=== PATIENT | female | born 1980 | race Caucasian/White ===

== ENCOUNTER 2017-12-06 13:17 | Emergency (ER) | payer OTHER ==
[2017-12-06 13:25] VITALS: BP 123/88; PULSE 125; TEMP 98.8; BMI 22.8
--- NOTE | 2017-12-06 13:54 | PDOC ---
History of Present Illness - General Chief Complaint: Sore Throat Stated Complaint: THROAT PAIN History Source: Patient Exam Limitations: No Limitations - History of Present Illness Initial Comments: 12/06/17 14:15 HPI: This 37-year-old female presents to the emergency room with a complaint of fever. She states that she is not feeling well. She states she is 9 weeks . After being told she was she was treated with penicillin injection for a treatment of syphilis. She is now starting to have some sore throat, fever, chills, general body aches for the past 3 days. She feels nauseous but is not having any vomiting. Chief Compliant: General body aches PMH: 9 weeks FH: Pt has not recently traveled outside the country in the last 30 days. Pt has not been in contact with people who have traveled out of the country, in contact with people who have been ill with fever, n, v, d. SH: smoking use: NONE illicit drug use: NONE alcohol use: NONE employment/educational status: sexual history: PSH: Home med use noted on JAN Allergies: NKA Immunizations: Did not receive the flu vaccine PCP: Ugo Gimenez. Past History - Past Medical History Allergies/Adverse Reactions: Allergies Allergy/AdvReac Type Severity Reaction Status Date / Time No Known Allergies Allergy Verified 12/06/17 13:24 Home Medications: Ambulatory Orders NK [No Known Home Medication] 12/06/17 COPD: No Diabetes: No - Suicide/Smoking/Psychosocial Hx Smoking History: Never smoked Hx Alcohol Use: No Review of Systems - Review of Systems Able to Perform ROS?: Yes Comments:: 12/06/17 14:18 General statement: General body aches and low-grade Hematology: neg history of bleeding/blood thinners Skin: Neg for lesions, rash, bruising. HEENT: Neg symptoms Respiratory: Neg SOB or difficulty in breathing with nasal congestion and cough Cardiac: Neg chest pain GI: Neg pain, n/v : Neg problems on voiding MS: Neg for joint pain/stiffness, no edema Neuro: Neg for LOC, weakness, Endocrine: Neg for excess thirst/hunger, cold/heat intolerance, excess sweating Allergies: Neg for allergies *Physical Exam - Vital Signs Last Vital Signs Temp Pulse Resp BP Pulse Ox 98.8 F 125 H 20 123/88 100 12/06/17 13:21 12/06/17 13:21 12/06/17 13:21 12/06/17 13:21 12/06/17 13:21 - Physical Exam Comments: 12/06/17 14:18 General Appearance: This ill appearing female V/S: hemodynamically stable, afebrile at ER Skin: WNL of pt's skin color, no signs of pallor, mottling, cyanosis Head:symmetrical Eyes: EOM's intact, PERRLA Ears: denies pain Nose: patent with swelling turbinates Throat: lips, teeth, gums, tongue, buccal mucos pink and moist, erythema to pharynx Lungs: Chest symmetry equal. Cap refill <3 seconds. Lung sounds clear Cardiac: PMI at R 4MCL space, pos S1 and S2, regular rate. Abdomen: Soft, round, nontender : Not observed Muscularskeletal: Gait steady, ambulated in to ER, no edema +PMS Neuro: AAOx3, cognitively intact, speech clear and appropriate. Medical Decision Making - Medical Decision Making 12/06/17 14:20 Pt seen and examined. Swabbed for influenza. 12/06/17 14:34 Patient is noted to be positive for influenza B. Encouraging to have fluids, tylenol and rest. She is 9 weeks *DC/Admit/Observation/Transfer Diagnosis at time of Disposition: Influenza B - Discharge Dispostion Disposition: HOME Condition at time of disposition: Stable Admit: No - Referrals Referrals: Ej Trejo PA [Primary Care Provider] - - Patient Instructions Printed Discharge Instructions: DI for Influenza -- Adult Additional Instructions: Discharge instructions 1. Please follow up with your primary physician within the next few days and explain that you have been seen here in the Emergency Room. 2. If you experience any worsening of symptoms, such as nausea, vomiting, dehydration please return to the ER 3. Rest, take Tylenol for fever and body aches 4. Drink plenty of fluid - Post Discharge Activity
== END 2017-12-06 14:48 | disposition home or self-care (01) ==
LOC: JERFT 13:17
DX: O26.891 Other specified pregnancy related conditions, first trimester (principal); O98.511 Other viral diseases complicating pregnancy, first trimester; J10.1 Influenza due to other identified influenza virus with other respiratory manifestations; Z3A.09 9 weeks gestation of pregnancy
CPT/HCPCS: 87804; 99281-25

== ENCOUNTER 2017-12-15 11:21 | Emergency (ER) | payer OTHER ==
[2017-12-15 11:35] VITALS: TEMP 98.4; BMI 23.0
[2017-12-15] MEDS ORDERED: ONDANSETRON 4 MG/2 ML VIAL IVPUSH ONE (13:09)
--- NOTE | 2017-12-15 13:09 | PDOC ---
History of Present Illness - General History Source: Patient Exam Limitations: No Limitations - History of Present Illness Initial Comments: 12/15/17 14:19 The patient is a 37 year old female (10 weeks ), with no significant past medical history who presents to the emergency department with nausea, vomiting, and generalized weakness. Patient endorses generalized abdominal pain. Patient was sent in by [employer] Supervisor for further evaluation. Patient denies chest pain, headache or dizziness. Patient denies fever, chills, diarrhea or constipation. Patient denies dysuria, frequency, urgency or hematuria. Patient denies sick contacts or recent travel. Allergies: NKA Past surgical history: C section Social history: None PCP: Dr. Trejo <Safia Bravo - Last Filed: 12/15/17 14:19> <Tyra Jones - Last Filed: 12/15/17 16:45> - General Chief Complaint: Nausea/Vomiting Stated Complaint: PREG DEHYDRATED (PCP SENT) Time Seen by Provider: 12/15/17 11:57 Past History <Safia Bravo - Last Filed: 12/15/17 14:19> - Past Medical History COPD: No Diabetes: No - Suicide/Smoking/Psychosocial Hx Smoking History: Unknown if ever smoked Information on smoking cessation initiated: No Hx Alcohol Use: No Drug/Substance Use Hx: No Substance Use Type: None <Tyra Jones - Last Filed: 12/15/17 16:45> - Past Medical History Allergies/Adverse Reactions: Allergies Allergy/AdvReac Type Severity Reaction Status Date / Time No Known Allergies Allergy Verified 12/15/17 11:31 Home Medications: Ambulatory Orders Ondansetron [Zofran Odt -] 4 mg SL TID PRN #21 od.tablet 12/15/17 Review of Systems - Review of Systems Able to Perform ROS?: Yes Comments:: 12/15/17 14:19 GENERAL/CONSTITUTIONAL: No fever or chills. No weakness. HEAD, EYES, EARS, NOSE AND THROAT: No change in vision. No ear pain or discharge. No sore throat. GASTROINTESTINAL: + nausea, vomiting, abdominal pain. No diarrhea or constipation. GENITOURINARY: No dysuria, frequency, or change in urination. CARDIOVASCULAR: No chest pain or shortness of breath. RESPIRATORY: No cough, wheezing, or hemoptysis. MUSCULOSKELETAL: No joint or muscle swelling or pain. No neck or back pain. SKIN: No rash NEUROLOGIC: No headache, vertigo, loss of consciousness, or change in strength/ sensation. ENDOCRINE: No increased thirst. No abnormal weight change. HEMATOLOGIC/LYMPHATIC: No anemia, easy bleeding, or history of blood clots. ALLERGIC/IMMUNOLOGIC: No hives or skin allergy. <Safia Bravo - Last Filed: 12/15/17 14:19> *Physical Exam - Vital Signs Last Vital Signs Temp Pulse Resp BP Pulse Ox 98.4 F 90 18 106/71 100 12/15/17 11:33 12/15/17 11:33 12/15/17 11:33 12/15/17 11:33 12/15/17 11:33 <Safia Bravo - Last Filed: 12/15/17 14:19> - Vital Signs Last Vital Signs Temp Pulse Resp BP Pulse Ox 98.4 F 90 18 106/71 100 12/15/17 11:33 12/15/17 11:33 12/15/17 11:33 12/15/17 11:33 12/15/17 11:33 <Tyra Jones - Last Filed: 12/15/17 16:45> ED Treatment Course - LABORATORY CBC & Chemistry Diagram: 12/15/17 13:09 12/15/17 13:09 - ADDITIONAL ORDERS Additional order review: 12/15/17 13:09 RBC 5.02 MCV 81.7 MCHC 33.5 RDW 12.2 MPV 7.6 D Neutrophils % 69.1 Lymphocytes % 23.8 D Monocytes % 6.1 Eosinophils % 0.5 D Basophils % 0.5 - Medications Given in the ED: ED Medications Discontinued Medications Generic Name Dose Route Start Last Admin Trade Name Freq PRN Reason Stop Dose Admin Lactated Ringer's 1,000 ml 12/15/17 13:10 12/15/17 13:48 Lactated Ringers Solution IV 12/15/17 13:11 1,000 ml ONCE ONE Administration Ondansetron HCl 4 mg 12/15/17 13:09 12/15/17 13:48 Zofran Injection IVPUSH 12/15/17 13:10 4 mg ONCE ONE Administration <Safia Bravo - Last Filed: 12/15/17 14:19> - LABORATORY CBC & Chemistry Diagram: 12/15/17 13:09 12/15/17 13:09 <Tyra Jones - Last Filed: 12/15/17 16:45> Medical Decision Making - Medical Decision Making 12/15/17 16:44 Sono results d/w patient. Offered PO challenge. Will DC home when IV fluids are complete. <Tyra Jones - Last Filed: 12/15/17 16:45> *DC/Admit/Observation/Transfer - Attestations Scribe Attestion: 12/15/17 14:20 Documentation prepared by Safia Bravo, acting as medical oncologist for Tyra Jones MD <Safia Bravo - Last Filed: 12/15/17 14:19> - Discharge Dispostion Admit: No <Tyra Jones - Last Filed: 12/15/17 16:45> Diagnosis at time of Disposition: Hyperemesis - Discharge Dispostion Disposition: HOME Condition at time of disposition: Stable - Prescriptions Prescriptions: Ondansetron [Zofran Odt -] 4 mg SL TID PRN #21 od.tablet PRN Reason: Nausea And/Or Vomiting - Referrals Referrals: Ej Trejo PA [Primary Care Provider] - - Patient Instructions Printed Discharge Instructions: DI for Hyperemesis Gravidarum Print Language: BOTSWANAN - Post Discharge Activity
[2017-12-15] MEDS ORDERED: LACTATED RINGERS SOLUTION 1000 ML INFUS.BAG IV ONE (13:10)
[2017-12-15] MEDS ORDERED: ONDANSETRON 4 MG/2 ML VIAL ONE (13:30)
[2017-12-15 13:50] LABS: BASO % 0.5 % (0-2.0); EOS % 0.5 % (0-4.5); HEMOGLOBIN 13.7 GM/dL (10.7-15.3); LYMPH % 23.8 % (8-40); MCH 27.3 pg (25.7-33.7); MCHC 33.5 g/dl (32.0-36.0); MEAN CELL VOLUME 81.7 fl (80-96); MEAN PLT VOLUME 7.6 fl (7.5-11.1); MONO % 6.1 % (3.8-10.2); NEUT % 69.1 % (42.8-82.8); PLATELET COUNT 354 K/MM3 (134-434); RBC 5.02 M/mm3 (3.60-5.2); RDW 12.2 % (11.6-15.6); WHITE BLOOD COUNT 8.4 K/mm3 (4.0-10.0)
[2017-12-15 14:22] LABS: ALBUMIN 3.5 g/dl (3.4-5.0); ANION GAP 9 (8-16); BILIRUBIN,TOTAL 0.9 mg/dL (0.2-1.0); BLOOD UREA NITROGEN 7 mg/dL (7-18); CALCIUM 9.5 mg/dL (8.5-10.1); CHLORIDE 105 mmol/L (98-107); CO2 24 mmol/L (21-32); CREATININE 0.5 mg/dL (0.55-1.02); GLUCOSE,RANDOM 69 mg/dL (74-106); POTASSIUM 4.3 mmol/L (3.5-5.1); SGOT/AST 38 U/L (15-37); SGPT/ALT 64 U/L (12-78); SODIUM 138 mmol/L (136-145); TOT PROT 7.5 g/dl (6.4-8.2)
[2017-12-15 14:27] LABS: LIPASE 288 U/L (73-393)
[2017-12-15 14:37] LABS: ALK PHOS 74 U/L (45-117)
[2017-12-15] MEDS ORDERED: DEXTROSE 5%-NORMAL SALINE 1,000 ML IV SCH (14:45)
[2017-12-15 16:01] LABS: URINE APPEARANCE CLEAR; URINE BILIRUBIN NEGATIVE (NEGATIVE); URINE BLOOD NEGATIVE (NEGATIVE); URINE COLOR AMBER; URINE GLUCOSE (UA) NEGATIVE (NEGATIVE); URINE KETONE 2+ (NEGATIVE); URINE LEUK ESTERASE TRACE (NEGATIVE); URINE NITRITE NEGATIVE (NEGATIVE); URINE PROTEIN NEGATIVE (NEGATIVE); URINE UROBILINOGEN 4.0 E.U/dl mg/dL (0.2-1.0)
[2017-12-15 17:33] VITALS: BP 122/68; PULSE 76
== END 2017-12-15 17:33 | disposition home or self-care (01) ==
LOC: JER 11:21
DX: O26.891 Other specified pregnancy related conditions, first trimester (principal); O21.0 Mild hyperemesis gravidarum; Z3A.10 10 weeks gestation of pregnancy
CPT/HCPCS: 36415; 76801-TC; 80053; 81003; 81015; 83690; 84702; 85025; 99285-25

== ENCOUNTER 2018-06-26 15:00 | Inpatient (IN) | payer OTHER ==
[2018-06-29] MEDS ORDERED: ELECTROLYTE-148 SOLN 500 ML IV ONE (14:00)
[2018-06-29 14:40] VITALS: BMI 27.7
[2018-06-29] MEDS: ELECTROLYTE-148 SOLN 1,000 ML IV SCH (15:00)
[2018-06-29] MEDS ORDERED: CITRIC ACID/SODIUM CITRATE 30 ML UNIT-DOSE CUP PO ONE (15:02)
[2018-06-29] MEDS ORDERED: OXYTOCIN 20 UNITS in 0.9% NS 40 UNIT/2,000 ML INFUS.BAG IV ONE (16:28)
[2018-06-29] MEDS ORDERED: morphine SULFATE/Preservative Free 0.5 MG/ML (1cc Syringe) ONE (16:28)
--- NOTE | 2018-06-29 16:28 | HP ---
Past Medical History - Primary Care Physician PCP:: Humble Cheung - Admission Chief Complaint: 39 weeks, previous c/s, request of repeat c/s History of Present Illness: 38 yo f g 3 p2002 39.2 weeks, with previous c/s , request of repeat c/s , discussed and encourged, risks of repeat c/s discussed History Source: Patient Limitations to Obtaining History: Language Barrier - Past Medical History ...: 3 ...Para: 2 ...Term: 2 ...: 0 ...Spon : 0 ...Induced : 0 ...Multiple Gestation: 0 ...LMP: 09/27/17 ... Weeks Gestation by Dates: 39.2 ...EDC by Dates: 07/04/18 ...EDC by Sono: 07/04/18 Additional OB History: AMA, negative sequential 1 and 2 Infectious Disease: Yes: STD's (txed for syphillis, hsv) - Past Surgical History Hx Myomectomy: No Hx Transabdominal Cerclage: No - Smoking History Smoking history: Never smoked Have you smoked in the past 12 months: No - Alcohol/Substance Use Hx Alcohol Use: No History of Substance Use: reports: None - Social History Usual Living Arrangement: Yes: With Spouse History of Recent Travel: No Home Medications - Allergies Allergies/Adverse Reactions: Allergies Allergy/AdvReac Type Severity Reaction Status Date / Time No Known Allergies Allergy Verified 06/29/18 14:43 - Home Medications Home Medications: Ambulatory Orders Acyclovir [Zovirax -] 800 mg PO DAILY 06/29/18 Ferrous Sulfate [Feosol] 1 tab PO DAILY 06/29/18 Vitamins (Sjr) - 1 tab PO DAILY 06/29/18 Family Disease History - Family Disease History Family Disease History: Other: Father (htn, cva) Review of Systems - Review of Systems Constitutional: reports: No Symptoms Eyes: reports: No Symptoms HENT: reports: No Symptoms Neck: reports: No Symptoms Cardiovascular: reports: No Symptoms Respiratory: reports: No Symptoms Genitourinary: reports: No Symptoms Breasts: reports: No Symptoms Reported Musculoskeletal: reports: No Symptoms Integumentary: reports: No Symptoms Neurological: reports: No Symptoms Endocrine: reports: No Symptoms Hematology/Lymphatic: reports: No Symptoms Psychiatric: reports: No Symptoms Physical Exam - Maternity Vital Signs: Vital Signs Temperature 98.1 F 06/29/18 13:50 Pulse Rate 64 06/29/18 13:50 Respiratory Rate 18 06/29/18 13:50 Blood Pressure 127/72 06/29/18 13:50 O2 Sat by Pulse Oximetry (%) Constitutional: Yes: Well Nourished, No Distress, Calm Eyes: Yes: WNL, Conjunctiva Clear, EOM Intact HENT: Yes: WNL, Atraumatic, Normocephalic Neck: Yes: WNL, Supple, Trachea Midline Cardiovascular: Yes: WNL, Regular Rate and Rhythm Breast(s): Yes: WNL - Abdominal Exam/OB Fundal Height: 40 Number of Fetuses: Single Presentation: Vertex Contractions: Yes Regularity: Irregular Intensity: Unaware Monitor Mode: External Heart Rate Location: [facility] Category: I Accelerations: Uniform Decelerations: None - Vaginal Exam/OB Vaginal Bleediing: No Speculum Exam: No Dilatation (cm): closed Effacement (%): 0 Amniotic Membrane Status: Intact Presentation: Vertex/Position Station: -3 - Physical Exam Musculoskeletal: Yes: WNL Extremities: Yes: WNL Edema: Yes Edema: LLE: Trace, RLE: Trace Deep Tendon Reflex Grade: Normal +2 ...Motor Strength: WNL Psychiatric: Yes: WNL Hemorrhage Risk Assessment - Risk Factors Medium Risk Factors: Yes: Prior , uterine surgery,or multiple laparotomies Risk Score: 1 Risk Level: Medium Risk Problem List - Problems (1) with 39 completed weeks gestation Code(s): Z3A.39 - 39 WEEKS GESTATION OF (2) Previous section complicating Code(s): O34.219 - MATERNAL CARE FOR UNSP TYPE SCAR FROM PREVIOUS DEL (3) Advanced maternal age (AMA) in Code(s): QRN6992 - (4) Syphilis affecting Code(s): O98.119 - SYPHILIS COMPLICATING , UNSPECIFIED TRIMESTER Qualifiers: Trimester: third trimester Qualified Code(s): O98.113 - Syphilis complicating , third trimester Assessment/Plan requesting repeat c/s, rba discussed
[2018-06-29] MEDS ORDERED: ACETAMINOPHEN 325 MG TABLET (FP) PO PRN (16:48)
[2018-06-29] MEDS ORDERED: ONDANSETRON 4 MG/2 ML VIAL IVPUSH PRN (16:48)
[2018-06-29] MEDS ORDERED: ceFAZolin SODIUM 1 GM VIAL ONE (16:50)
[2018-06-29] MEDS ORDERED: BENZOCAINE 20% 57 GM BOTTLE TP PRN (17:34)
[2018-06-29] MEDS ORDERED: diphenhydrAMINE HCL 25 MG CAPSULE (FP) PO PRN (17:34)
[2018-06-29] MEDS ORDERED: METHYLERGONOVINE MALEATE 0.2 MG/1 ML AMP IM PRN (17:34)
[2018-06-29] MEDS ORDERED: IBUPROFEN 800 MG/8 ML IJ IVPB PRN (17:34)
[2018-06-29] MEDS ORDERED: IBUPROFEN 600 MG TABLET (FP) PO PRN (17:34)
[2018-06-29] MEDS ORDERED: BENZOCAINE 28 GM HEMORRHOIDAL OINTMENT PR PRN (17:34)
[2018-06-29] MEDS ORDERED: WITCH HAZEL 50% (TUCKS) 40 PAD/JAR PAD TP PRN (17:34)
--- NOTE | 2018-06-29 17:38 | SURG ---
Surgery Rn Diabetes Note Rn Diabetes: Jovani Vega PA-C Date of Service: 06/29/18 Diagnosis: Repeat Procedure: I was present for the entirety of the operative procedure. For further detail, please refer to operative report.
[2018-06-29] MEDS ORDERED: OXYTOCIN 20 UNITS in 0.9% NS 20 UNIT/1,000 ML INFUS.BAG IV SCH (17:45)
[2018-06-29] MEDS ORDERED: CEFAZOLIN 1 GM in DEXTROSE 5%-WATER - 50 ML IVPB SCH (18:00)
[2018-06-30] MEDS ORDERED: ceFAZolin SODIUM 1 GM VIAL ONE ×2 (00:36→08:40)
[2018-06-30] MEDS ORDERED: DEXTROSE 5%-WATER - 50 ML IVPB ONE ×2 (00:36→08:40)
[2018-06-30] MEDS: CEFAZOLIN 1 GM in DEXTROSE 5%-WATER - 50 ML IVPB SCH ×2 (00:42→08:45)
[2018-06-30 08:39] LABS: BASO % 0.4 % (0-2.0); EOS % 0.1 % (0-4.5); HEMATOCRIT 34.6 % (32.4-45.2); HEMOGLOBIN 11.6 GM/dL (10.7-15.3); LYMPH % 11.9 % (8-40); MCH 28.7 pg (25.7-33.7); MCHC 33.6 g/dl (32.0-36.0); MEAN CELL VOLUME 85.3 fl (80-96); MEAN PLT VOLUME 8.5 fl (7.5-11.1); MONO % 4.8 % (3.8-10.2); NEUT % 82.8 % (42.8-82.8); PLATELET COUNT 207 K/MM3 (134-434); RBC 4.06 M/mm3 (3.60-5.2); RDW 14.2 % (11.6-15.6); WHITE BLOOD COUNT 11.1 K/mm3 (4.0-10.0)
--- NOTE | 2018-06-30 09:13 | PN ---
Post Progress Note Type of Delivery: Repeat C/S Vital Signs: Vital Signs Temperature 98.1 F 06/30/18 05:32 Pulse Rate 57 L 06/30/18 05:32 Respiratory Rate 20 06/30/18 06:00 Blood Pressure 90/48 06/30/18 05:32 O2 Sat by Pulse Oximetry (%) 100 06/29/18 18:45 - Labs Labs: CBC WBC 11.1 K/mm3 (4.0-10.0) H 06/30/18 07:10 RBC 4.06 M/mm3 (3.60-5.2) 06/30/18 07:10 Hgb 11.6 GM/dL (10.7-15.3) 06/30/18 07:10 Hct 34.6 % (32.4-45.2) 06/30/18 07:10 MCV 85.3 fl (80-96) 06/30/18 07:10 MCH 28.7 pg (25.7-33.7) 06/30/18 07:10 MCHC 33.6 g/dl (32.0-36.0) 06/30/18 07:10 RDW 14.2 % (11.6-15.6) 06/30/18 07:10 Plt Count 207 K/MM3 (134-434) 06/30/18 07:10 MPV 8.5 fl (7.5-11.1) 06/30/18 07:10 Absolute Neuts (auto) 9.2 K/mm3 (1.5-8.0) H 06/30/18 07:10 Neutrophils % 82.8 % (42.8-82.8) 06/30/18 07:10 Lymphocytes % 11.9 % (8-40) D 06/30/18 07:10 Monocytes % 4.8 % (3.8-10.2) 06/30/18 07:10 Eosinophils % 0.1 % (0-4.5) 06/30/18 07:10 Basophils % 0.4 % (0-2.0) 06/30/18 07:10 Nucleated RBC % 0 % (0-0) 06/30/18 07:10
[2018-06-30] MEDS: oxyCODONE HCL 5 MG TABLET PO PRN ×3 (10:17→21:12)
[2018-06-30] MEDS: ENOXAPARIN NA (PORCINE) 40 MG/0.4 ML DISP.SYRIN SQ SCH (10:17)
[2018-06-30] MEDS: ACETAMINOPHEN 325 MG TABLET (FP) PO PRN ×3 (10:18→21:14)
[2018-06-30] MEDS: SIMETHICONE 80 MG TAB.CHEW (FP) PO PRN ×3 (10:19→21:12)
--- NOTE | 2018-06-30 10:21 | OP ---
DATE OF OPERATION: 06/29/2018 PREOPERATIVE DIAGNOSIS: , 39 weeks, previous section, request of repeat section. POSTOPERATIVE DIAGNOSIS: , 39 weeks, previous section, request of repeat section. PROCEDURE: Repeat low segment transverse section. SURGEON: Humble Cheung MD ENVIRONMENTAL DESIGNER: YUE Rios ANESTHESIA: Spinal. ANESTHESIOLOGIST: Kaleb Rankin MD ESTIMATED BLOOD LOSS: 500 mL. OPERATION: The patient was taken to the operating room, had adequate spinal anesthesia. Abdomen and perineum were prepped and draped. Pfannenstiel abdominal skin incision was made. Abdominal wall was cut layer by layer until the peritoneum was exposed and incised. Upon entering the abdominal cavity, lower uterine segment was identified, and uterovesical fold of peritoneum was established, bladder was pushed down. A low transverse uterine incision was made. Incision extended laterally. Amniotic sac was entered. Clear fluid, head delivered from right occiput transverse position. Nasal sinuses were suctioned. Cord around the neck x1 reduced. Then, live baby was delivered without any difficulty. Placenta was delivered manually. Uterine cavity was cleaned of all remaining tissue. Uterine incision was closed in 2 layers, 1st layer with 0 Biosyn continuous suture, the 2nd layer with 0 Biosyn imbricating the 1st layer. Bladder flap was closed with 0 Biosyn continuous suture. Both tubes and ovaries were checked, were normal. No active bleeding was seen. All the lap, sponge, and instrument counts were correct. Then, peritoneum was closed with 0 Biosyn continuous suture, muscles were brought together with interrupted sutures of 0 Biosyn, fascia was closed with 0 Biosyn continuous suture, subcutaneous fat with interrupted suture of 0 Biosyn, and the skin was closed with 3-0 Vicryl subcuticular continuous suture. Patient tolerated the procedure well, left the OR in good condition. Audrey [id number]
--- NOTE | 2018-06-30 10:37 | PN ---
Progress Note (short form) - Note Progress Note: Anesthesia postop note 38 y/o F s/p spinal anesthesia for section, duramorph for postop pain management. POD#1, vss, aooxe, sensory motor intact distally, pain well controlled. No anesthesia complications.
[2018-06-30] MEDS ORDERED: BISACODYL 10 MG SUPP.RECT RC PRN (17:34)
[2018-06-30] MEDS: IBUPROFEN 600 MG TABLET (FP) PO PRN (21:13)
[2018-07-01] MEDS: ACETAMINOPHEN 325 MG TABLET (FP) PO PRN ×3 (08:07→20:42)
[2018-07-01] MEDS: oxyCODONE HCL 5 MG TABLET PO PRN ×2 (08:08→15:44)
[2018-07-01] MEDS: IBUPROFEN 600 MG TABLET (FP) PO PRN ×3 (08:09→20:43)
[2018-07-01] MEDS: SIMETHICONE 80 MG TAB.CHEW (FP) PO PRN ×3 (08:09→20:42)
--- NOTE | 2018-07-01 09:35 | PN ---
Post Progress Note - Subjective Subjective: c/o pain scale 8/10 voiding without difficulty Post Day: 2 Type of Delivery: Repeat C/S Vital Signs: Vital Signs Temperature 98 F 06/30/18 22:00 Pulse Rate 62 06/30/18 22:00 Respiratory Rate 18 06/30/18 22:00 Blood Pressure 125/72 06/30/18 22:00 O2 Sat by Pulse Oximetry (%) 100 06/29/18 18:45 Breast Exam: Yes: Soft, Other (BF ). No: Engorged Uterus: Yes: Fundus Firm, Fundus below umbilicus, Non-tender Incision: Yes: Sutures intact. No: Redness, Oozing Abdomen/GI: Yes: Abdomen soft, Passing flatus (bm done ), Tolerating PO (diet). No: Abdominal Distention, Tender Lochia: Yes: Rubra Lochia, amount: Small Extremities: Yes: Calves non-tender Perineum: Yes: Intact Activity: Ambulating - Labs Labs: CBC WBC 11.1 K/mm3 (4.0-10.0) H 06/30/18 07:10 RBC 4.06 M/mm3 (3.60-5.2) 06/30/18 07:10 Hgb 11.6 GM/dL (10.7-15.3) 06/30/18 07:10 Hct 34.6 % (32.4-45.2) 06/30/18 07:10 MCV 85.3 fl (80-96) 06/30/18 07:10 MCH 28.7 pg (25.7-33.7) 06/30/18 07:10 MCHC 33.6 g/dl (32.0-36.0) 06/30/18 07:10 RDW 14.2 % (11.6-15.6) 06/30/18 07:10 Plt Count 207 K/MM3 (134-434) 06/30/18 07:10 MPV 8.5 fl (7.5-11.1) 06/30/18 07:10 Absolute Neuts (auto) 9.2 K/mm3 (1.5-8.0) H 06/30/18 07:10 Neutrophils % 82.8 % (42.8-82.8) 06/30/18 07:10 Lymphocytes % 11.9 % (8-40) D 06/30/18 07:10 Monocytes % 4.8 % (3.8-10.2) 06/30/18 07:10 Eosinophils % 0.1 % (0-4.5) 06/30/18 07:10 Basophils % 0.4 % (0-2.0) 06/30/18 07:10 Nucleated RBC % 0 % (0-0) 06/30/18 07:10 Problem List - Problems (1) Status post section routine follow-up Code(s): Z39.2 - ENCOUNTER FOR ROUTINE FOLLOW-UP; Z98.891 - HISTORY OF UTERINE SCAR FROM PREVIOUS SURGERY Assessment/Plan stable plan ct po care
[2018-07-01] MEDS: ENOXAPARIN NA (PORCINE) 40 MG/0.4 ML DISP.SYRIN SQ SCH (10:38)
[2018-07-01] MEDS: SENNOSIDES/DOCUSATE COMBO (SENNA PLUS) TABLET (UD) PO PRN (20:42)
[2018-07-02] MEDS: DEXTROSE 5%-LACTATED RINGERS 1,000 ML IV SCH ×3 (01:11→01:13)
[2018-07-02] MEDS: ELECTROLYTE-148 SOLN 1,000 ML IV SCH ×2 (01:12→01:13)
[2018-07-02] MEDS: SIMETHICONE 80 MG TAB.CHEW (FP) PO PRN ×3 (03:59→18:31)
[2018-07-02] MEDS: ACETAMINOPHEN 325 MG TABLET (FP) PO PRN ×3 (03:59→18:32)
[2018-07-02] MEDS: IBUPROFEN 600 MG TABLET (FP) PO PRN ×2 (04:00→18:31)
[2018-07-02 08:32] LABS: BASO % 0.6 % (0-2.0); EOS % 1.6 % (0-4.5); HEMATOCRIT 33.4 % (32.4-45.2); HEMOGLOBIN 11.2 GM/dL (10.7-15.3); LYMPH % 22.1 % (8-40); MCH 28.7 pg (25.7-33.7); MCHC 33.5 g/dl (32.0-36.0); MEAN CELL VOLUME 85.6 fl (80-96); MEAN PLT VOLUME 7.6 fl (7.5-11.1); NEUT % 70.7 % (42.8-82.8); PLATELET COUNT 239 K/MM3 (134-434); RDW 14.1 % (11.6-15.6); WHITE BLOOD COUNT 7.5 K/mm3 (4.0-10.0)
--- NOTE | 2018-07-02 09:42 | PN ---
Post Progress Note - Subjective Subjective: pt feels better. pain more tolerable. scale 4-6/10 voiding without difficulty. bm done ,not satisfactory Post Day: 3 Type of Delivery: Repeat C/S Vital Signs: Vital Signs Temperature 97 F L 07/02/18 08:42 Pulse Rate 84 07/02/18 08:42 Respiratory Rate 20 07/02/18 08:42 Blood Pressure 112/64 07/02/18 08:42 O2 Sat by Pulse Oximetry (%) 100 06/29/18 18:45 Breast Exam: Yes: Soft, Other (BF.). No: Engorged Uterus: Yes: Fundus Firm, Fundus below umbilicus, Non-tender Incision: Yes: Sutures intact. No: Redness, Oozing Abdomen/GI: Yes: Abdomen soft, Tolerating PO (diet). No: Abdominal Distention Lochia: Yes: Rubra Lochia, amount: Moderate Perineum: Yes: Intact Activity: Ambulating - Labs Labs: CBC WBC 7.5 K/mm3 (4.0-10.0) 07/02/18 07:45 RBC 3.90 M/mm3 (3.60-5.2) 07/02/18 07:45 Hgb 11.2 GM/dL (10.7-15.3) 07/02/18 07:45 Hct 33.4 % (32.4-45.2) 07/02/18 07:45 MCV 85.6 fl (80-96) 07/02/18 07:45 MCH 28.7 pg (25.7-33.7) 07/02/18 07:45 MCHC 33.5 g/dl (32.0-36.0) 07/02/18 07:45 RDW 14.1 % (11.6-15.6) 07/02/18 07:45 Plt Count 239 K/MM3 (134-434) 07/02/18 07:45 MPV 7.6 fl (7.5-11.1) D 07/02/18 07:45 Absolute Neuts (auto) 5.3 K/mm3 (1.5-8.0) 07/02/18 07:45 Neutrophils % 70.7 % (42.8-82.8) 07/02/18 07:45 Lymphocytes % 22.1 % (8-40) D 07/02/18 07:45 Monocytes % 5.0 % (3.8-10.2) 07/02/18 07:45 Eosinophils % 1.6 % (0-4.5) D 07/02/18 07:45 Basophils % 0.6 % (0-2.0) 07/02/18 07:45 Nucleated RBC % 0 % (0-0) 07/02/18 07:45 Problem List - Problems (1) Status post section routine follow-up Code(s): Z39.2 - ENCOUNTER FOR ROUTINE FOLLOW-UP; Z98.891 - HISTORY OF UTERINE SCAR FROM PREVIOUS SURGERY Assessment/Plan stable. plan ct po care discharge tomorrow.
[2018-07-02] MEDS: ENOXAPARIN NA (PORCINE) 40 MG/0.4 ML DISP.SYRIN SQ SCH (10:20)
[2018-07-02] MEDS: oxyCODONE HCL 5 MG TABLET PO PRN (14:05)
[2018-07-02] MEDS ORDERED: oxyCODONE HCL 5 MG TABLET PO PRN (21:08)
[2018-07-02] MEDS: SENNOSIDES/DOCUSATE COMBO (SENNA PLUS) TABLET (UD) PO PRN (21:17)
[2018-07-03] MEDS: IBUPROFEN 600 MG TABLET (FP) PO PRN (04:52)
[2018-07-03] MEDS: SIMETHICONE 80 MG TAB.CHEW (FP) PO PRN (04:53)
[2018-07-03] MEDS: ACETAMINOPHEN 325 MG TABLET (FP) PO PRN (04:53)
--- NOTE | 2018-07-03 04:54 | DS ---
Physical Exam-ENVIRONMENTAL COMPLIANCE OFFICER Vital Signs: Vital Signs Temperature 99 F 07/02/18 21:59 Pulse Rate 66 07/02/18 21:59 Respiratory Rate 18 07/02/18 21:59 Blood Pressure 127/67 07/02/18 21:59 O2 Sat by Pulse Oximetry (%) 100 06/29/18 18:45 ....Post : Yes: Uterus firm, Uterus non-tender, Slight lochia rubra Edema: No Wound/Incision: Yes: Clean/Dry, Well Approximated, [place] Intact Labs: CBC, BMP 07/02/18 07:45 Delivery - Delivery Section: Repeat (no complication) Type of Anesthesia: Spinal Episiotomy/Laceration: None EBL (cc): 500 Delivery, Single - Stages of Labor Date of Delivery: 06/29/18 Time of Delivery: 16:54 Time Placenta Delivered: 16:55 Placenta: Yes: Spontaneous - Condition of Infant Earth Burner/Shank Skinner Present: Yes Name: Daja Wagner Gender: Male Weight: 7 lb 7 oz Position: Right, OT Total Hours ROM (Hrs/Mins): 0/2 - 1 Minute Total Score: 9 5 Minutes Total Score: 9 - [place] Feeding Plan Initial Plan: Exclusive throughout hospitalization Discharge Summary Reason For Visit: Current Active Problems Advanced maternal age (AMA) in (Acute) with 39 completed weeks gestation (Acute) Previous section complicating (Acute) Status post section routine follow-up (Acute) Syphilis affecting (Acute) Procedures: Principal: repeat lst c/s Condition: Good - Instructions Diet, Activity, Other Instructions: regular diet, no intercourse , follow up [facility] car 1 week, if fever, pain , heavy vaginal bleeding call Referrals: Humble Cheung MD [Staff Physician] - Disposition: HOME - Home Medications Comprehensive Discharge Medication List: Ambulatory Orders Acyclovir [Zovirax -] 800 mg PO DAILY 06/29/18 Ferrous Sulfate [Feosol] 1 tab PO DAILY 06/29/18 Vitamins (Sjr) - 1 tab PO DAILY 06/29/18 Ibuprofen [Motrin -] 600 mg PO QID #28 tablet 07/02/18
[2018-07-03] MEDS: ENOXAPARIN NA (PORCINE) 40 MG/0.4 ML DISP.SYRIN SQ SCH (10:11)
[2018-07-03 13:48] VITALS: BP 110/70; PULSE 64; TEMP 98.2
--- NOTE | 2018-07-07 18:01 | PATH ---
Surgical Pathology Report Patient Name: TESSIE TRINIDAD Med. Rec. #: [id number] /Age/Gender: 1980 (Age: 38) / F Account: [id number] Location: [facility] OBS/RESTAURANT RECRUITER Taken: 06/29/2018 Received: 06/30/2018 Reported: 07/07/2018 Physicians: Humble Cheung M.D. Specimen(s) Received PLACENTA Clinical History , 39.2 weeks for repeat Final Diagnosis PLACENTA: THIRD TRIMESTER PLACENTA. TRIVASCULAR CORD. MEMBRANES WITH NO DIAGNOSTIC ABNORMALITIES. Electronically Signed Carrillo Restrepo M.D. Gross Description The specimen is received fresh labeled placenta and is a 495 gram, 21.0 x 15.5 x 2.4 cm. placenta with attached membranes and umbilical cord. The attached membranes are pimentel, translucent with focal opacities and insert marginally. The umbilical cord measures 32 cm. in length and averages 1.1 cm. in diameter. The cord inserts eccentrically, 4 cm. to the nearest margin. No true knots or strictures are identified. Cut surface of the umbilical cord reveals 3 vessels. The surface is mccord blue with moderate fibrin deposition and appropriate caliber vessels. The maternal surface is red-brown with focal defects. Sectioning reveals red-brown, spongy parenchyma. No lesions are identified. Sports Editor sections are submitted in three cassettes as follows: 1- membrane rolls and umbilical cord; 2-3- full thickness sections of placenta. 07/03/2018 [facility]07/03/2018
== END 2018-07-03 13:45 | disposition home or self-care (01) | DRG 765 ==
LOC: JLDR 06-29 13:50 → J3W 06-29 19:58
PROVIDERS: ADMIT Obstetrics & Gynecology; ATTEND Obstetrics & Gynecology
PROC: 10D00Z1 Extraction of Products of Conception, Low, Open Approach (ICD-10-PCS; principal; 2018-06-29)
DX: O34.211 Maternal care for low transverse scar from previous cesarean delivery (principal); O98.313 Other infections with a predominantly sexual mode of transmission complicating pregnancy, third trimester; A60.09 Herpesviral infection of other urogenital tract; Z86.19 Personal history of other infectious and parasitic diseases; Z3A.39 39 weeks gestation of pregnancy; Z37.0 Single live birth
CPT/HCPCS: 36415; 85025; 88307-TC

== ENCOUNTER 2020-11-10 01:22 | Emergency (ER) | payer OTHER ==
[2020-11-10 01:46] VITALS: TEMP 99.7; BMI 28.3
[2020-11-10] MEDS ORDERED: ACETAMINOPHEN 1000 MG/100 ML BAG IVPB ONE (02:20)
[2020-11-10] MEDS ORDERED: SODIUM CHLORIDE 1,000 ML IV SCH (02:30)
[2020-11-10] MEDS ORDERED: ACETAMINOPHEN INJECTION 100 ML IVPB ONE (02:50)
[2020-11-10 02:55] LABS: EOS % 0.1 % (0-4.5); HEMOGLOBIN 12.1 GM/dL (10.7-15.3); LYMPH % 25.9 % (8-40); MCH 27.7 pg (25.7-33.7); MCHC 33.5 g/dl (32.0-36.0); MEAN CELL VOLUME 82.8 fl (80-96); MEAN PLT VOLUME 8.4 fl (7.5-11.1); MONO % 7.4 % (3.8-10.2); NEUT % 65.6 % (42.8-82.8); PLATELET COUNT 195 K/MM3 (134-434); RBC 4.35 M/mm3 (3.60-5.2); RDW 13.1 % (11.6-15.6); WHITE BLOOD COUNT 4.1 K/mm3 (4.0-10.0)
[2020-11-10 02:57] VITALS: BP 115/80; PULSE 100
[2020-11-10 03:13] LABS: CHLORIDE 109 mmol/L (98-107); SODIUM 141 mmol/L (136-145)
[2020-11-10 03:15] LABS: CALCIUM 7.9 mg/dL (8.5-10.1)
[2020-11-10 03:16] LABS: ALBUMIN 3.4 g/dl (3.4-5.0); ANION GAP 8 MMOL/L (8-16); BLOOD UREA NITROGEN 10.7 mg/dL (7-18); CO2 25 mmol/L (21-32); GLUCOSE,RANDOM 86 mg/dL (74-106)
[2020-11-10 03:19] LABS: CREATININE 0.9 mg/dL (0.55-1.3); SGOT/AST 29 U/L (15-37); SGPT/ALT 40 U/L (13-61)
[2020-11-10 03:20] LABS: BILIRUBIN,TOTAL 0.4 mg/dL (0.2-1)
[2020-11-10 03:21] LABS: TOT PROT 6.6 g/dl (6.4-8.2)
[2020-11-10 03:22] LABS: ALK PHOS 65 U/L (45-117)
== END 2020-11-10 06:19 | disposition home or self-care (01) ==
LOC: JER 01:22
PROC: 3E0333Z Introduction of Anti-inflammatory into Peripheral Vein, Percutaneous Approach (ICD-10-PCS; principal; 2020-11-10)
DX: R05 Cough (principal); R06.02 Shortness of breath; J02.9 Acute pharyngitis, unspecified
CPT/HCPCS: 36415; 71045-TC-FY; 80053; 84484; 84703; 85025; 85379; 93005; 93010; 99285-25; C9803; J0131; U0003

== ENCOUNTER 2020-11-13 16:42 | Emergency (ER) | payer OTHER ==
[2020-11-13 16:56] VITALS: BP 149/95; PULSE 95; TEMP 98.2; BMI 32.2
== END 2020-11-13 18:14 | disposition home or self-care (01) ==
LOC: JER 16:42
DX: U07.1 COVID-19 (principal); R05 Cough
CPT/HCPCS: 93005; 93010; 99282-25

== ENCOUNTER 2021-07-13 17:26 | Emergency (ER) | payer OTHER ==
[2021-07-13 17:39] VITALS: BP 133/77; PULSE 93; TEMP 99; BMI 24.8
[2021-07-13] MEDS ORDERED: KETOROLAC TROMETHAMINE 30 MG/1 ML VIAL IM ONE (18:43)
[2021-07-13] MEDS ORDERED: KETOROLAC TROMETHAMINE 30 MG/1 ML VIAL ONE (18:45)
== END 2021-07-13 19:56 | disposition home or self-care (01) ==
LOC: JERFT 17:26
PROC: 3E0233Z Introduction of Anti-inflammatory into Muscle, Percutaneous Approach (ICD-10-PCS; principal; 2021-07-13)
DX: M54.5 Low back pain (principal); R20.8 Other disturbances of skin sensation; M79.603 Pain in arm, unspecified; Y09 Assault by unspecified means; Y92.9 Unspecified place or not applicable
CPT/HCPCS: 99283-25